=== PATIENT | female | born 1965 | race Asian ===

== ENCOUNTER 2018-10-01 07:50 | Day surgery (SDC) | payer BC ==
[~2018-10-01] VITALS: Ht 160 cm; Wt 49.3 kg
[2018-10-01 08:13] VITALS: Ht 160 cm; Wt 49.3 kg
[2018-10-01 09:11] VITALS: BP 111/69; PULSE 63; RESP 15
[2018-10-01] MEDS ORDERED: MECLIZINE (11:11)
[2018-10-01] MEDS ORDERED: [UNRECOGNIZED DRUG - CODE] (11:11)
[2018-10-01] MEDS ORDERED: MIDAZOLAM 1 MG/ML 2 ML INJ ONE ×2 (11:15)
[2018-10-01] MEDS ORDERED: FENTAnyl 50 MCG/ML VIAL ONE (11:15)
[2018-10-01 11:30] VITALS: BP 103/71; RESP 18
== END 2018-10-01 14:18 | disposition home or self-care (01) ==
LOC: GIL 07:50
PROVIDERS: ATTEND Internal Medicine Gastroenterology
DX: Z12.11 Encounter for screening for malignant neoplasm of colon (principal); K64.8 Other hemorrhoids; D12.5 Benign neoplasm of sigmoid colon
CPT/HCPCS: 45385; 88305; J2250; J3010; Z7610